=== PATIENT | female | born 1965 | race Caucasian/White ===

== ENCOUNTER 2016-11-26 16:34 | Inpatient (IN) | payer OTHER, MEDICARE ==
[2016-11-26] MEDS ORDERED: ACETAMINOPHEN 325 MG TAB PO PRN (21:00)
[2016-11-26] MEDS ORDERED: LORazepam 2 MG/ML VIAL IM PRN (21:00)
[2016-11-26] MEDS ORDERED: ALUMINUM/MAGNESIUM/SIMETH 30 ML CUP PO PRN (21:00)
[2016-11-26] MEDS ORDERED: MAGNESIUM HYDROXIDE SUSP 30 ML CUP PO PRN (21:00)
[2016-11-26] MEDS: REMOVE OLD NICOTINE PATCH T-DERMAL SCH (21:00)
[2016-11-26] MEDS ORDERED: GABAPENTIN 300 MG CAP PO ONE (22:00)
[2016-11-26] MEDS ORDERED: PREGABALIN 75 MG CAP PO ONE (22:00)
[2016-11-27 05:41] VITALS: BP 103/60; PULSE 84; RESP 18; TEMP 97.6; O2SAT 95
[2016-11-27] MEDS: NICOTINE 21 MG/24 HR PATCH T-DERMAL SCH (09:00)
[2016-11-27] MEDS: ATORVASTATIN 20 MG TAB PO SCH (09:03)
[2016-11-27] MEDS: PREGABALIN 75 MG CAP PO SCH ×3 (09:03→18:29)
[2016-11-27] MEDS: GABAPENTIN 300 MG CAP PO SCH ×3 (09:03→18:29)
[2016-11-27] MEDS: FLUoxetine HCL 20 MG CAP PO SCH (09:03)
[2016-11-27 10:11] LABS: ANION GAP 7 MEQ/L (5-15); BICARBONATE 28.8 MEQ/L (21.0-32.0); BLOOD UREA NITROGEN 17 MG/DL (7-18); CHLORIDE 105 MEQ/L (98-107); GLOMERULAR FILTRATION RATE 80 ML/MIN (>89); HDL CHOLESTEROL 43.1 MG/DL (40.0-60.0); LDL CHOLESTEROL 149 MG/DL (0-99); POTASSIUM 3.9 MEQ/L (3.5-5.1); SODIUM (NA) 141 MEQ/L (136-145)
[2016-11-27] MEDS: LORazepam 1 MG TAB PO PRN ×2 (12:13→21:00)
[2016-11-27] MEDS ORDERED: ALUMINUM/MAGNESIUM/SIMETH 30 ML CUP PO PRN (12:30)
[2016-11-27] MEDS ORDERED: DOCUSATE SODIUM 50 MG/SENNA 8.6 MG TAB PO PRN (12:30)
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
[2016-11-27] MEDS: ACETAMINOPHEN 325 MG TAB PO PRN ×2 (13:13→21:00)
[2016-11-27 14:33] LABS: AUTOMATED NEUTROPHIL # 3.8 TH/MM3 (1.8-7.7); BASOPHIL # 0.1 TH/MM3 (0-0.2); EOSINOPHIL # 0.2 TH/MM3 (0-0.4); EOSINOPHIL % 3.4 % (0.0-4.0); HEMATOCRIT 30.8 % (35.0-46.0); LYMPH % 19.1 % (9.0-44.0); LYMPHOCYTE # 1.1 TH/MM3 (1.0-4.8); MEAN CELL VOLUME 80.5 FL (80.0-100.0); MEAN CORPUSCULAR HEMOGLOBIN 26.5 PG (27.0-34.0); MONO % 11.4 % (0.0-8.0); NEUT % 65.1 % (16.0-70.0); PLATELET COUNT 305 TH/MM3 (150-450); RED BLOOD COUNT 3.83 MIL/MM3 (4.00-5.30); RED CELL DISTRIBUTION WIDTH 18.2 % (11.6-17.2); WHITE BLOOD COUNT 5.8 TH/MM3 (4.0-11.0)
[2016-11-27 14:41] LABS: HEMO FLAGS AUTO DIFF
[2016-11-27 15:07] LABS: OVALOCYTES 1+ (NORMAL)
[2016-11-27 15:08] LABS: PLATELET ESTIMATE SMEAR NORMAL (NORMAL); PLATELET MORPHOLOGY NORMAL (NORMAL); SCAN/DIFF AUTO DIFF CONFIRMED
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
[2016-11-27 16:33] LABS: HEMOGLOBIN A1b 1.4 %; HEMOGLOBIN Ao 86.5 %; HEMOGLOBIN LA1C 1.9 %; HEMOGLOBIN P3 3.5 %
[2016-11-27 18:02] VITALS: BP 106/53; PULSE 69; RESP 17; TEMP 98.5; O2SAT 95
[2016-11-27] MEDS: REMOVE OLD NICOTINE PATCH T-DERMAL SCH (21:00)
[2016-11-28 04:46] LABS: BLOOD, URINE NEG (NEG); COMMENT (UR) CULT NOT INDICATED; CULTURE IF INDICATED CULT NOT INDICATED; GLUCOSE,URINE NEG (NEG); KETONE, URINE NEG (NEG); MUCUS URINE FEW /lpf (OCC); NITRITE,URINE NEG (NEG); SQUAMOUS EPITHELIAL CELL URINE 4 /hpf (0-5); URINE COLOR YELLOW (YELLW/STRAW)
[2016-11-28 05:09] VITALS: BP 105/68; PULSE 72; RESP 18; TEMP 98.1; O2SAT 100
[2016-11-28] MEDS: NICOTINE 21 MG/24 HR PATCH T-DERMAL SCH (09:00)
[2016-11-28] MEDS: GABAPENTIN 300 MG CAP PO SCH ×3 (09:43→18:44)
[2016-11-28] MEDS: PREGABALIN 75 MG CAP PO SCH ×3 (09:43→18:45)
[2016-11-28] MEDS: FLUoxetine HCL 20 MG CAP PO SCH (09:43)
[2016-11-28] MEDS: ATORVASTATIN 20 MG TAB PO SCH (09:43)
[2016-11-28] MEDS: LORazepam 1 MG TAB PO PRN ×2 (11:21→20:34)
--- NOTE | 2016-11-28 12:21 | HHI.PYPN ---
Subjective Remarks Patient continues to report depression and states she has nowhere to go. She has been afraid to contact her parents but this physician encouraged her. She is taking Prozac and tolerating it well. Review of Systems Except as stated in HPI: all other systems reviewed are Neg Objective Alert: Yes Ruby: Person, Place, Date, Situation Mood: Calm Affect: Euthymic Memory Intact: Immediate, Recent, Remote Hallucinations: Other Delusions: No Delusion Type: Other Suicidal: Ideation Homicidal: Ideation Insight/Judgment Impaired Labs Test 11/27/16 11/28/16 14:13 04:30 White Blood Count 5.8 TH/MM3 Red Blood Count 3.83 MIL/MM3 Hemoglobin 10.2 GM/DL Hematocrit 30.8 % Mean Corpuscular Volume 80.5 FL Mean Corpuscular Hemoglobin 26.5 PG Mean Corpuscular Hemoglobin 33.0 % Concent Red Cell Distribution Width 18.2 % Platelet Count 305 TH/MM3 Mean Platelet Volume 7.9 FL Neutrophils (%) (Auto) 65.1 % Lymphocytes (%) (Auto) 19.1 % Monocytes (%) (Auto) 11.4 % Eosinophils (%) (Auto) 3.4 % Basophils (%) (Auto) 1.0 % Neutrophils # (Auto) 3.8 TH/MM3 Lymphocytes # (Auto) 1.1 TH/MM3 Monocytes # (Auto) 0.7 TH/MM3 Eosinophils # (Auto) 0.2 TH/MM3 Basophils # (Auto) 0.1 TH/MM3 CBC Comment AUTO DIFF Differential Comment AUTO DIFF CONFIRMED Platelet Estimate NORMAL Platelet Morphology Comment NORMAL Ovalocytes 1+ Urine Color YELLOW Urine Turbidity CLEAR Urine pH 6.0 Urine Specific [place] 1.023 Urine Protein TRACE mg/dL Urine Glucose (UA) NEG mg/dL Urine Ketones NEG mg/dL Urine Occult Blood NEG Urine Nitrite NEG Urine Bilirubin NEG Urine Urobilinogen LESS THAN 2.0 MG/DL Urine Leukocyte Esterase NEG Urine RBC 1 /hpf Urine WBC LESS THAN 1 /hpf Urine Squamous Epithelial 4 /hpf Cells Urine Mucus FEW /lpf Microscopic Urinalysis Comment CULT NOT INDICATED Vitals/IOs Vital Signs Date Time Temp Pulse Resp B/P Pulse Ox O2 Delivery O2 Flow Rate FiO2 11/28/16 05:09 98.1 72 18 105/68 100 Intake and Output 11/27/16 11/27/16 11/28/16 08:00 16:00 00:00 Intake Total 360 ml Balance 360 ml Assessment & Plan Problem List: (1) Adjustment disorder with depressed mood ICD Code: F43.21 Assessment & Plan Estimated LOS: 2 days patient needs more time in therapy and on medication to respond. Justification for Cont. Inpt. Likely to decompensate at lower level of care. Jake Ratliff MD November 28, 2016 12:21
[2016-11-28 18:14] VITALS: BP 124/67; PULSE 78; RESP 17; TEMP 98.3; O2SAT 100
[2016-11-28] MEDS: REMOVE OLD NICOTINE PATCH T-DERMAL SCH (20:55)
--- NOTE | 2016-11-28 21:40 | HHI.PR ---
Subjective Remarks deferred entry - patient seen at 4:30 PM Patient still c/o of pain on bck of neck radiating to left arm denies weakness Objective Vitals Vital Signs Date Time Temp Pulse Resp B/P Pulse Ox O2 Delivery O2 Flow Rate FiO2 11/28/16 18:14 98.3 78 17 124/67 100 11/28/16 05:09 98.1 72 18 105/68 100 I/O 11/27/16 11/27/16 11/27/16 11/28/16 11/28/16 11/28/16 07:00 15:00 23:00 07:00 15:00 23:00 Intake Total 360 ml Balance 360 ml Intake Oral 360 ml Result Diagram: 11/27/16 1413 11/27/16 0906 Objective Remarks GENERAL: This is a well-nourished, well-developed patient, in no apparent distress. SKIN: No rashes, ecchymoses or lesions. Cool and dry. HEAD: Atraumatic. Normocephalic. No temporal or scalp tenderness. EYES: Pupils equal round and reactive. Extraocular motions intact. No scleral icterus. No injection or drainage. ENT: Nose without bleeding, purulent drainage or septal hematoma. Throat without erythema, tonsillar hypertrophy or exudate. Uvula midline. Airway patent. NECK: Trachea midline. No JVD or lymphadenopathy. Supple, nontender, no meningeal signs. CARDIOVASCULAR: Regular rate and rhythm without murmurs, gallops, or rubs. RESPIRATORY: Clear to auscultation. Breath sounds equal bilaterally. No wheezes , rales, or rhonchi. GASTROINTESTINAL: Abdomen soft, non-tender, nondistended. No hepato-splenomegaly , or palpable masses. No guarding. MUSCULOSKELETAL: Extremities without clubbing, cyanosis, or edema. No joint tenderness, effusion, or edema noted. No calf tenderness. Negative Homans sign bilaterally.Pain on palpation of cervical spine and paraspinal muscles as well as lumbar spine. NEUROLOGICAL: Awake and alert. Cranial nerves II through XII intact. Motor and sensory grossly within normal limits. 3 out of 5 muscle strength in LUE. Normal speech. Medications and IVs Current Medications Medications (Trade) Dose Ordered Sig/Briana Route Start Time Stop Time Status Last Admin (Ativan) 1 mg Q8H PRN PO 11/26/16 21:00 11/28/16 20:34 (Ativan Inj) 1 mg Q8H PRN IM 11/26/16 21:00 (Milk Of Magnesia Liq) 30 ml DAILY PRN PO 11/26/16 21:00 (Mag-Al Plus Susp Liq) 30 ml Q6H PRN PO 11/26/16 21:00 (Habitrol 21 Mg Patch.24 Hr) 1 patch DAILY T-DERMAL 11/27/16 09:00 Miscellaneous Information 1 HS T-DERMAL 11/26/16 21:00 11/27/16 21:00 (Neurontin) 600 mg TID PO 11/27/16 09:00 11/28/16 18:44 (Lyrica) 75 mg TID PO 11/27/16 09:00 11/28/16 18:45 (PROzac) 20 mg DAILY PO 11/27/16 09:00 11/28/16 09:43 (Lipitor) 20 mg DAILY PO 11/27/16 09:00 11/28/16 09:43 (Roxicodone) 5 mg BID PO 11/26/16 21:00 11/28/16 20:34 (Tylenol) 650 mg Q4H PRN PO 11/27/16 12:30 11/27/16 21:00 (Leti-Colace) 1 tab BID PRN PO 11/27/16 12:30 A/P Problem List: (1) Adjustment disorder with depressed mood ICD Code: F43.21 Status: Acute (2) Chronic pain ICD Code: G89.29 Status: Acute (3) Lumbar back pain ICD Code: M54.5 Status: Acute (4) Cervical radicular pain ICD Code: M54.12 Status: Acute Assessment and Plan Management of depression as per psychiatry. Likely poor pain control is contributing to depression Patient will need pain management as an outpatient. Will change oxycodone to as needed I reviewed personally the images and the reports and the images of the cervical and lumbar spine MRI and there is no acute fracture or significant stenosis. encourage ambulation for dvt prophylaxis. Julian Sierra MD November 28, 2016 21:40
[2016-11-29 05:28] VITALS: BP 108/57; PULSE 84; RESP 16; TEMP 98.9
[2016-11-29] MEDS: GABAPENTIN 300 MG CAP PO SCH ×2 (08:46→13:00)
[2016-11-29] MEDS: ATORVASTATIN 20 MG TAB PO SCH (08:46)
[2016-11-29] MEDS: PREGABALIN 75 MG CAP PO SCH ×3 (08:46→14:09)
[2016-11-29] MEDS: FLUoxetine HCL 20 MG CAP PO SCH (08:46)
[2016-11-29] MEDS: NICOTINE 21 MG/24 HR PATCH T-DERMAL SCH (09:00)
[2016-11-29] MEDS: LORazepam 1 MG TAB PO PRN ×2 (11:51→21:48)
--- NOTE | 2016-11-29 17:59 | HHI.PR ---
Subjective Remarks Patient still complains of severe shooting pain which starts on neck and goes down her left arm States pain is exacerbated by moving arm pain medication is helping but pain is still significant Objective Vitals Vital Signs Date Time Temp Pulse Resp B/P Pulse Ox O2 Delivery O2 Flow Rate FiO2 11/29/16 05:28 98.9 84 16 108/57 11/28/16 18:14 98.3 78 17 124/67 100 I/O 11/28/16 11/28/16 11/28/16 11/29/16 11/29/16 11/29/16 07:00 15:00 23:00 07:00 15:00 23:00 Intake Total 360 ml Balance 360 ml Intake Oral 360 ml Result Diagram: 11/27/16 1413 11/27/16 0906 Objective Remarks GENERAL: This is a well-nourished, well-developed patient, in no apparent distress. SKIN: No rashes, ecchymoses or lesions. Cool and dry. HEAD: Atraumatic. Normocephalic. No temporal or scalp tenderness. EYES: Pupils equal round and reactive. Extraocular motions intact. No scleral icterus. No injection or drainage. ENT: Nose without bleeding, purulent drainage or septal hematoma. Throat without erythema, tonsillar hypertrophy or exudate. Uvula midline. Airway patent. NECK: Trachea midline. No JVD or lymphadenopathy. Supple, nontender, no meningeal signs. CARDIOVASCULAR: Regular rate and rhythm without murmurs, gallops, or rubs. RESPIRATORY: Clear to auscultation. Breath sounds equal bilaterally. No wheezes , rales, or rhonchi. GASTROINTESTINAL: Abdomen soft, non-tender, nondistended. No hepato-splenomegaly , or palpable masses. No guarding. MUSCULOSKELETAL: Extremities without clubbing, cyanosis, or edema. No joint tenderness, effusion, or edema noted. No calf tenderness. Negative Homans sign bilaterally.Pain on palpation of cervical spine and paraspinal muscles as well as lumbar spine. NEUROLOGICAL: Awake and alert. Cranial nerves II through XII intact. Motor and sensory grossly within normal limits. 3 out of 5 muscle strength in LUE. Normal speech. Medications and IVs Current Medications Medications (Trade) Dose Ordered Sig/Briana Route Start Time Stop Time Status Last Admin (Ativan) 1 mg Q8H PRN PO 11/26/16 21:00 11/29/16 11:51 (Ativan Inj) 1 mg Q8H PRN IM 11/26/16 21:00 (Milk Of Magnesia Liq) 30 ml DAILY PRN PO 11/26/16 21:00 (Mag-Al Plus Susp Liq) 30 ml Q6H PRN PO 11/26/16 21:00 (Habitrol 21 Mg Patch.24 Hr) 1 patch DAILY T-DERMAL 11/27/16 09:00 Miscellaneous Information 1 HS T-DERMAL 11/26/16 21:00 11/27/16 21:00 (Lyrica) 75 mg TID PO 11/27/16 09:00 11/29/16 13:00 (PROzac) 20 mg DAILY PO 11/27/16 09:00 11/29/16 08:46 (Lipitor) 20 mg DAILY PO 11/27/16 09:00 11/29/16 08:46 (Tylenol) 650 mg Q4H PRN PO 11/27/16 12:30 11/27/16 21:00 (Leti-Colace) 1 tab BID PRN PO 11/27/16 12:30 (Roxicodone) 5 mg Q4H PRN PO 11/28/16 21:30 (Roxicodone) 10 mg Q6H PRN PO 11/28/16 21:30 11/29/16 16:04 (Neurontin) 800 mg TID PO 11/29/16 18:00 Urinary Catheter: No Vascular Central Line Catheter: No A/P Problem List: (1) Adjustment disorder with depressed mood ICD Code: F43.21 Status: Acute (2) Chronic pain ICD Code: G89.29 Status: Acute (3) Lumbar back pain ICD Code: M54.5 Status: Acute (4) Cervical radicular pain ICD Code: M54.12 Status: Acute Assessment and Plan Management of depression as per psychiatry. Likely poor pain control is contributing to depression Patient will need pain management as an outpatient. Continue pain control with oxycodone I reviewed personally the images and the reports and the images of the cervical and lumbar spine MRI and there is no acute fracture or significant stenosis. Given that patient continues to c/o cervical radiculopathy will consult neurosurgery and increase gabapentin dose. encourage ambulation for dvt prophylaxis. Will continue to follow. Julian Sierra MD November 29, 2016 17:59
[2016-11-29 18:00] VITALS: BP 95/53; PULSE 73; RESP 18; TEMP 97.1; O2SAT 98
[2016-11-29] MEDS: GABAPENTIN 400 MG CAP PO SCH (18:29)
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
[2016-11-29] MEDS: REMOVE OLD NICOTINE PATCH T-DERMAL SCH (21:00)
[2016-11-29] MEDS ORDERED: GADODIAMIDE PF 287 MG/ML 5 ML VIAL (for RAD MRI) IV ONE (21:35)
--- NOTE | 2016-11-29 22:09 | RADRPT ---
EXAM DATE/TIME: 11/29/2016 21:16 [place] COMPARISON: No previous studies available for comparison. INDICATIONS : Radiculopathy. CONTRAST: 12 cc Omniscan (gadodiamide) IV MEDICAL HISTORY : None. SURGICAL HISTORY : Fusion, lumbar. Tubal ligation. Left arm reconstruction. Left foot reconstruction. ENCOUNTER: Initial ACUITY: 3 weeks PAIN SCORE: 10/10 LOCATION: Left neck. TECHNIQUE: Multiplanar, multisequence MRI examination of the cervical spine was performed. FINDINGS: Cervical spine alignment is normal. Vertebral bodies have normal height and marrow signal. Visualized portions of the posterior fossa are grossly unremarkable. Mild degenerative changes are seen anterio rly at C1/C2. C2-C3: The disc is desiccated but otherwise normal. No foraminal or spinal stenosis. C3-C4: The disc is desiccated. No significant loss of height. Tiny posterior protrusion. No foraminal or spi nal stenosis. C4-C5: The disc is desiccated. No significant loss of height. Tiny posterior protrusion. No foraminal or spi nal stenosis. C5-C6: The disc is desiccated and has mild loss of height. There is a small moderate, broad but especially l eft paracentral/foraminal disc protrusion. A believe there is a right paracentral There is left uncov ertebral osteoarthritis/hypertrophic bone as well. There is mild spinal stenosis without cord yasmin carine or cord signal abnormality. There is moderate left foraminal stenosis. C6-C7: The disc is desiccated. No significant loss of height. There is bulging of the disc anulus and very m ild lateral uncal vertebral degenerative changes. No foraminal or spinal stenosis. C7-T1: Normal. There is no abnormal enhancement demonstrated. CONCLUSION: 1. Left paracentral/foraminal disc osteophyte complex causing moderate left foraminal stenosis at C5/ C6 and probable impingement on the exiting left C6 nerve root. 2. Mild degenerative changes at other levels without foraminal stenosis. 3. No significant spinal stenosis. Mraek Ghotra MD on November 29, 2016 at 22:00 Board Certified Radiologist. This report was verified electronically.
[2016-11-30 06:26] VITALS: BP 91/51; PULSE 77; RESP 16; TEMP 97.1; O2SAT 97
[2016-11-30] MEDS: PREGABALIN 75 MG CAP PO SCH ×2 (08:08→13:30)
[2016-11-30] MEDS: FLUoxetine HCL 20 MG CAP PO SCH (08:09)
[2016-11-30] MEDS: GABAPENTIN 400 MG CAP PO SCH ×2 (08:09→13:30)
[2016-11-30] MEDS: ATORVASTATIN 20 MG TAB PO SCH (08:09)
[2016-11-30] MEDS: NICOTINE 21 MG/24 HR PATCH T-DERMAL SCH (09:00)
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
[2016-11-30] MEDS: LORazepam 1 MG TAB PO PRN (10:37)
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
[2016-11-30] MEDS ORDERED: LYRI75CA PO (14:02)
[2016-11-30] MEDS ORDERED: FLUO20CA12 PO (14:02)
[2016-11-30] MEDS ORDERED: OXYC-395 PO (14:02)
== END 2016-11-30 17:28 | disposition home or self-care (01) | DRG 881 ==
LOC: UNDOADMIN 16:34 → H260 16:34 → UNDOADMIN 18:37 → H260 18:37
PROVIDERS: ADMIT Psychiatry & Neurology Psychiatry; ATTEND Psychiatry & Neurology Psychiatry
DX: F43.21 Adjustment disorder with depressed mood (principal); G62.9 Polyneuropathy, unspecified; N31.9 Neuromuscular dysfunction of bladder, unspecified; E78.5 Hyperlipidemia, unspecified; G89.4 Chronic pain syndrome; Z59.0 Homelessness; Z87.440 Personal history of urinary (tract) infections; M54.12 Radiculopathy, cervical region
CPT/HCPCS: 72156; 80048; 80061; 81001; 83036; 85025; A9579